=== PATIENT | female | born 1990 | race Caucasian/White ===

== ENCOUNTER 2017-12-03 19:56 | Inpatient (IN) | payer OTHER ==
[~2017-12-03 19:56] MED LIST: BUPIVACAINE (PF) 0.25% 30 ML VIAL ONE; SODIUM CHLORIDE 0.9% 100 ML BAG ONE; fentaNYL (PF) 50 MCG/ML 5 ML AMP ONE
[2017-12-03] MEDS ORDERED: CARBOPROST TROMETHAMINE 250 MCG/ML 1 ML AMP IM PRN (20:14)
[2017-12-03] MEDS ORDERED: TERBUTALINE 1 MG/ML VIAL SQ PRN (20:14)
[2017-12-03] MEDS ORDERED: LIDOCAINE 1% (PF) 10 MG/ML (30 ML SDV) SQ PRN (20:14)
[2017-12-03] MEDS ORDERED: OXYTOCIN 10 UNIT/ML 1 ML VIAL IM PRN (20:14)
[2017-12-03] MEDS ORDERED: METHYLERGONOVINE 0.2 MG/ML 1 ML AMP IM PRN (20:14)
[2017-12-03] MEDS ORDERED: OXYTOCIN 20 UNITS/1000 ML NS 1,000 ML IV SCH (20:15)
[2017-12-03 20:22] LABS: Glucose,Whole Blood 90 mg/dL (75-99)
[2017-12-03] MEDS: LACTATED RINGERS 1,000 ML IV SCH ×2 (20:40→21:49)
[2017-12-03 20:51] VITALS: BMI 35.8
[2017-12-03 20:57] LABS: Basophils % (A) 0 %; Eosinophils # (A) 0.1 k/uL (0-0.7); Eosinophils % (A) 1 %; HCT 34.5 % (34.0-46.0); HGB 11.7 gm/dL (11.4-16.0); Lymphocytes % (A) 12 %; MCH 29.8 pg (25.0-35.0); MCV 87.5 fL (80.0-100.0); Mean Platelet Volume 7.4; Monocytes # (A) 0.8 k/uL (0-1.0); Monocytes % (A) 5 %; Neutrophils % (A) 81 %; Platelet Count 307 k/uL (150-450); RBC 3.95 m/uL (3.80-5.40); RDW 13.1 % (11.5-15.5); WBC 16.2 k/uL (3.8-10.6)
[2017-12-03 21:01] LABS: Appearance,Urine Clear (Clear); Bilirubin,Urine Negative (Negative); Blood,Urine Negative (Negative); Color,Urine Yellow; Glucose,Urine (UA) Negative (Negative); Ketones,Urine 1+ (Negative); Leukocyte Esterase,Urine Small (Negative); Mucus,Urine Rare /hpf; Nitrite,Urine Negative (Negative); Protein,Urine Trace (Negative); RBC,Urine 2 /hpf (0-5); Specific Gravity,Urine 1.021 (1.001-1.035); Squamous Epithelial Cell,Urine 4 /hpf (0-4); Urobilinogen,Urine <2.0 mg/dL (<2.0); WBC,Urine 9 /hpf (0-5)
[2017-12-03 21:10] LABS: ALT 27 U/L (9-52); AST 21 U/L (14-36); Blood Urea Nitrogen 11 mg/dL (7-17); LDH 442 U/L (313-618)
--- NOTE | 2017-12-03 21:15 | P.MSEPDOC ---
Presenting Problems - Arrival Data Date of Arrival on Unit: 12/03/17 Time of Arrival on Unit: 19:56 Mode of Transport: Ambulatory - Complaint OB-Reason for Admission/Chief Complaint: Possible Onset of Labor Medical History - Information : 3 Para: 2 Term: 1 : 0 Abortions: Spontaneous or Elective: 1 Number of Living Children: 1 - Gestational Age Gestational Age by VANDANA (wks/days): 38 Weeks and 2 Days Review of Systems - Review of Systems Constitutional: No problems Breast: No problems ENT: No problems Cardiovascular: No problems Respiratory: No problems Gastrointestinal: No problems Genitourinary: No problems Musculoskeletal: No problems Neurological: No problems Skin: No problems Vital Signs - Temperature Temperature: 98.2 F Temperature Source: Temporal Artery Scan - Pulse Right Brachial Pulse Rate: 114 Pulse Assessment Method: Automatic Cuff - Respirations Respiratory Rate: 16 Oxygen Delivery Method: Room Air O2 Sat by Pulse Oximetry: 98 - Blood Pressure Right Arm Blood Pressure: 142/90 Blood Pressure Mean: 107 Blood Pressure Source: Automatic Cuff Medical Screen Scoring (Pre) - Cervical Exam Dilation: 4-7 cm = 2 Membranes: Intact - Uterine Contractions Frequency: < 36 weeks = 6 Duration: N/A Intensity: N/A - Maternal Vital Signs Maternal Temperature: N/A Maternal Blood Pressure: N/A Signs of Preeclampsia: N/A Maternal Respirations: N/A - Pain Assessment Pain Location and Character: Abdomen Pain Scale Used: Numeric (1 - 10) Pain Intensity: 10 Pain Management Goal: 5 Pain Description: Cramping Pain Frequency: Intermittent Pain Duration: 2 Pain Duration Units: Minutes Pain Behavior: Facial Grimacing, Vocalization Pain Aggravating Factors: Contractions - Maternal Trauma Maternal Trauma: N/A - Assessment Baseline FHR: 135 Heart Rate - NICHD Category: Category I (Normal) = 0 NST: Reactive Position: N/A Station: N/A - Total Score Total Score (Pre): 8 - Level of Risk Level of Risk: Medium (6-9) Physician Notification (Pre) - Physician Notified Physician Notified Date: 12/03/17 Physician Notified Time: 20:06 Physician/Practitioner Notifed:: Dr. Resendez Spoke With: Dr. Resendez New Order Received: Yes - Notification Comment Comment: Dr. Resendez called and given report on pt in triage. Vital signs, vag exam of. 4/100/-2. GDM- diet controlled. Orders recieved to admit pt to floor. Collect blood. sugar and pih labs. Pt may have epidural for pain. Disposition - Disposition OB Disposition: Admit I agree with the RN Medical Screening Exam: Yes Risk & Benefit of care provided described in d/c instruction: Yes Diagnosis: ENCOUNTER FOR FULL-TERM UNCOMPLICATED DELIVERY
[2017-12-03 21:24] LABS: INR 0.9 (<1.2); Prothrombin Time 9.3 sec (9.0-12.0)
[2017-12-03 21:40] LABS: Partial Thromboplastin Time 22.5 sec (22.0-30.0)
[2017-12-03] MEDS ORDERED: ROPIVACAINE 100 MG, fentaNYL (PF) 200 MCG in SODIUM CHLORIDE 0.9% 76 ML EPIDURAL ONE (21:43)
--- NOTE | 2017-12-03 23:01 | P.HPOB ---
History of Present Illness H&P Date: 12/03/17 Chief Complaint: Labor 27 year old presents at 38 weeks 2 days in labor. Her cervix was 4/90/-2 and she was katya every 2-4 minutes. heart tones 140-145 with moderate variability and reactive. Review of Systems All systems: negative Constitutional: Denies chills, Denies fever Eyes: denies blurred vision, denies pain Ears, nose, mouth and throat: Denies headache, Denies sore throat Cardiovascular: Denies chest pain, Denies shortness of breath Respiratory: Denies cough Gastrointestinal: Denies abdominal pain, Denies diarrhea, Denies nausea, Denies vomiting Genitourinary: Denies dysuria, Denies hematuria Musculoskeletal: Denies myalgias Integumentary: Denies pruritus, Denies rash Neurological: Denies numbness, Denies weakness Psychiatric: Denies anxiety, Denies depression Endocrine: Denies fatigue, Denies weight change Past Medical History Past Medical History: No Reported History Additional Past Medical History / Comment(s): OB history: first was a termination. Second was a vaginal delivery. This is her third and she had care in [facility] with Dr Rubio. She has gestational diabetes, diet controlled. Rub Imm, RPR NR, Hep B neg, HIV NR, GBS neg. History of Any Multi-Drug Resistant Organisms: None Reported Past Surgical History: No Surgical Hx Reported Past Anesthesia/Blood Transfusion Reactions: No Reported Reaction Past Psychological History: No Psychological Hx Reported Smoking Status: Former smoker Past Alcohol Use History: None Reported Past Drug Use History: None Reported - Past Family History Father Family Medical History: No Reported History Medications and Allergies Home Medications Medication Instructions Recorded Confirmed Type Pnv No.95/Ferrous Fum/Folic AC PO DAILY 12/03/17 History [ Multivitamin Tablet] Allergies Allergy/AdvReac Type Severity Reaction Status Date / Time No Known Allergies Allergy Verified 12/03/17 20:10 Exam Osteopathic Statement: *. No significant issues noted on an osteopathic structural exam other than those noted in the History and Physical/Consult. - Vital Signs Vital signs: Vital Signs Temp Pulse Resp BP Pulse Ox 12/03/17 21:15 98.2 F 114 H 16 142/90 98 12/03/17 20:34 98.2 F 114 H 16 142/90 98 12/03/17 20:06 98.2 F 114 H 16 142/90 98 Intake and Output 12/03/17 12/03/17 12/03/17 06:59 14:59 22:59 Intake Total 1000 Balance 1000 Intake: IV 1000 Lactated Ringers 1,000 ml 1000 @ 125 mls/hr IV .Q8H STEVE Rx#:[id number] Other: Weight 88.904 kg Heart: RRR Lungs: CTAB Abdomen: soft, nontender Extremeties: neg elmer's Results Result Diagrams: 12/03/17 20:40 12/03/17 20:40 Abnormal Lab Results - Last 24 Hours (Table) 12/03/17 12/03/17 12/03/17 Range/Units 20:40 20:40 20:40 WBC (3.8-10.6) k/uL Neutrophils # (1.3-7.7) k/uL Fibrinogen 614 H (200-500) mg/dL Creatinine 0.50 L (0.52-1.04) mg/dL Uric Acid 3.0 L (3.7-7.4) mg/dL Urine Protein Trace H (Negative) Urine Ketones 1+ H (Negative) Ur Leukocyte Esterase Small H (Negative) Urine WBC 9 H (0-5) /hpf Urine Mucus Rare H (None) /hpf 12/03/17 Range/Units 20:40 WBC 16.2 H (3.8-10.6) k/uL Neutrophils # 13.0 H (1.3-7.7) k/uL Fibrinogen (200-500) mg/dL Creatinine (0.52-1.04) mg/dL Uric Acid (3.7-7.4) mg/dL Urine Protein (Negative) Urine Ketones (Negative) Ur Leukocyte Esterase (Negative) Urine WBC (0-5) /hpf Urine Mucus (None) /hpf Assessment and Plan (1) Normal labor Current Visit: Yes Status: Acute Code(s): O80 - ENCOUNTER FOR FULL-TERM UNCOMPLICATED DELIVERY; Z37.9 - OUTCOME OF DELIVERY, UNSPECIFIED SNOMED Code(s ): 84583526 (2) Gestational diabetes mellitus, class A1 Current Visit: Yes Status: Acute Code(s): O24.410 - GESTATIONAL DIABETES MELLITUS IN , DIET CONTROLLED SNOMED Code(s): 44853993 Plan: 1. admit to family 2. expectant management 3. anticipate normal vaginal delivery
[2017-12-04] MEDS ORDERED: diphenhydrAMINE 25 MG CAP PO PRN (00:36)
[2017-12-04] MEDS ORDERED: diphenhydrAMINE 50 MG CAP PO PRN (00:36)
[2017-12-04] MEDS ORDERED: LANOLIN CREAM 5 GM TUBE TOPICAL PRN (00:36)
[2017-12-04] MEDS ORDERED: HYDROcodone/APAP 5-325MG 1 EACH TAB PO PRN (00:36)
[2017-12-04] MEDS ORDERED: IBUPROFEN 600 MG TAB PO PRN (00:36)
[2017-12-04] MEDS ORDERED: WITCH HAZEL 1 EACH MED..PAD TOPICAL PRN (00:36)
[2017-12-04] MEDS ORDERED: BENZOCAINE/MENTHOL SPRAY 1 GM/SPRAY AEROSOL TOPICAL PRN (00:36)
[2017-12-04] MEDS ORDERED: ZOLPIDEM 5 MG TAB PO PRN (00:36)
[2017-12-04] MEDS ORDERED: HYDROCORTISONE 2.5% RECTAL CREAM 30 GM TUBE RECTAL PRN (00:36)
[2017-12-04] MEDS ORDERED: SIMETHICONE 80 MG CHEWABLE PO PRN (00:36)
[2017-12-04] MEDS ORDERED: diphenhydrAMINE 50 MG/ML 1 ML VIAL IVP PRN ×2 (00:36)
--- NOTE | 2017-12-04 00:42 | P.PROBDLV ---
Vaginal Delivery Note - . Vaginal Delivery Note: 27-year-old presented at 38 weeks and 2 days in active labor. Her cervix was 4 cm dilated, 90% effaced, and -2 station. She was katya every 2-4 minutes. heart tones 140-145 with moderate variability and reactive. Blood sugar upon arrival was 90. Her blood pressure was a little elevated at 140/90. Preeclamptic labs were run and normal. She did get an epidural for pain control. Once this was placed she was 7 cm dilated, her percent effaced, and 0 station, amniotomy was performed at 2144 and clear fluid noted. Her cervix was completely dilated at 2345, she pushed the head to the perineum and after several pushes became increasingly fatigued. The perineum was localized with 1% lidocaine and a small midline episiotomy was made. The patient delivered a viable male over midline episiotomy under epidural anesthesia at 0018. Head delivered OA, anterior shoulder delivered gentle downward traction followed by posterior shoulder and rest of body. Nose and mouth bulb suctioned, cord clamped and cut, placed on mother's abdomen. Apgars 9, 9, weight 7 lbs. 14 oz. Placenta delivered spontaneously, intact with three-vessel cord at 0020. Vagina, cervix, and perineum were inspected. Second-degree midline episiotomy was repaired with 2-0 and 3-0 Vicryl. Estimated blood loss 200 mL. Mother and baby in stable condition.
[2017-12-04] MEDS ORDERED: OXYTOCIN 20 UNITS/1000 ML NS 1,000 ML IV SCH (00:45)
[2017-12-04] MEDS: SENNOSIDES-DOCUSATE SODIUM 1 EACH TAB PO SCH ×2 (07:39→20:12)
[2017-12-04] MEDS: ACETAMINOPHEN TAB 325 MG TAB PO PRN ×2 (07:40→20:12)
--- NOTE | 2017-12-04 11:51 | P.DS ---
Providers Date of admission: 12/03/17 20:19 Expected date of discharge: 12/05/17 Attending physician: Juliana Resendez Primary care physician: Stated None - Discharge Diagnosis(es) (1) Normal labor Current Visit: Yes Status: Resolved (2) Gestational diabetes mellitus, class A1 Current Visit: Yes Status: Resolved (3) Normal vaginal delivery Current Visit: Yes Status: Acute Hospital Course: Patient presented in active labor. She underwent normal vaginal delivery. Her course was uncomplicated. She'll be discharged home day # 1 in stable condition to follow-up with me in 6 weeks. Plan - Discharge Summary New Discharge Prescriptions: New Ibuprofen [Motrin] 600 mg PO Q6HR PRN #30 tab PRN Reason: Mild Pain Or Fever >= 100.5 No Action Pnv No.95/Ferrous Fum/Folic AC [ Multivitamin Tablet] PO DAILY Discharge Medication List Pnv No.95/Ferrous Fum/Folic AC [ Multivitamin Tablet] PO DAILY 12/03/17 [History] Ibuprofen [Motrin] 600 mg PO Q6HR PRN #30 tab 12/04/17 [Rx] Follow up Appointment(s)/Referral(s): Juliana Resendez DO [Doctor of Osteopathic Medicine] - 6 Weeks Discharge Disposition: HOME SELF-CARE
[2017-12-05 00:04] VITALS: BP 135/86; PULSE 80; RESP 16; TEMP 97.7
== END 2017-12-05 01:11 | disposition home or self-care (01) | DRG 775 ==
LOC: FBPOP 19:56 → 4FBP 20:19
PROVIDERS: ADMIT Obstetrics & Gynecology; ATTEND Obstetrics & Gynecology
PROC: 0W8NXZZ Division of Female Perineum, External Approach (ICD-10-PCS; principal; 2017-12-03)
PROC: 10E0XZZ Delivery of Products of Conception, External Approach (ICD-10-PCS; 2017-12-03)
PROC: 10907ZC Drainage of Amniotic Fluid, Therapeutic from Products of Conception, Via Natural or Artificial Opening (ICD-10-PCS; 2017-12-03)
DX: O24.420 Gestational diabetes mellitus in childbirth, diet controlled (principal); Z37.0 Single live birth; Z3A.38 38 weeks gestation of pregnancy; Z87.891 Personal history of nicotine dependence
CPT/HCPCS: 59025; 81001; 82565; 83615; 84450; 84460; 84520; 84550; 85025; 85384; 85610; 85730; 99213

== ENCOUNTER 2018-11-06 06:00 | Inpatient (IN) | payer OTHER ==
[2018-11-06] MEDS ORDERED: METHYLERGONOVINE 0.2 MG/ML 1 ML AMP IM PRN (15:43)
[2018-11-06] MEDS ORDERED: CARBOPROST TROMETHAMINE 250 MCG/ML 1 ML AMP IM PRN (15:43)
[2018-11-06] MEDS ORDERED: TERBUTALINE 1 MG/ML VIAL SQ PRN (15:43)
[2018-11-06] MEDS ORDERED: OXYTOCIN 10 UNIT/ML 1 ML VIAL IM PRN (15:43)
[2018-11-06] MEDS ORDERED: LIDOCAINE 0.5% (PF) 5 MG/ML (50 ML SDV) SQ PRN (15:43)
[2018-11-06] MEDS ORDERED: AMPICILLIN 2,000 MG in SODIUM CHLORIDE 0.9% 100 ML IVPB STA (15:43)
[2018-11-06] MEDS ORDERED: OXYTOCIN 30 UNITS/500 ML NS 30 UNIT in SALINE 1 500ML.BAG IV SCH (15:45)
[2018-11-06] MEDS ORDERED: LACTATED RINGERS 1,000 ML IV SCH (15:45)
[2018-11-06 15:59] VITALS: BMI 36.9
[2018-11-06 16:16] LABS: Basophils % (A) 0 %; Eosinophils # (A) 0.1 k/uL (0-0.7); Eosinophils % (A) 1 %; HCT 33.1 % (34.0-46.0); HGB 10.7 gm/dL (11.4-16.0); Hypochromasia Slight; Lymphocytes # (A) 1.7 k/uL (1.0-4.8); Lymphocytes % (A) 17 %; MCH 26.7 pg (25.0-35.0); MCHC 32.2 g/dL (31.0-37.0); MCV 83.1 fL (80.0-100.0); Mean Platelet Volume 7.5; Monocytes # (A) 0.5 k/uL (0-1.0); Monocytes % (A) 6 %; Neutrophils # (A) 7.1 k/uL (1.3-7.7); Neutrophils % (A) 74 %; Platelet Count 305 k/uL (150-450); Poikilocytosis Slight; RBC 3.98 m/uL (3.80-5.40); RDW 13.4 % (11.5-15.5); WBC 9.7 k/uL (3.8-10.6)
[2018-11-06 16:44] LABS: Glucose,Whole Blood 80 mg/dL (75-99)
--- NOTE | 2018-11-06 16:50 | P.HPOB ---
History of Present Illness H&P Date: 11/06/18 Chief Complaint: IUP @ 38 3/7 weeks, prolonged ROM This is a 27-year-old 4 para 2011 at 38-3/7 weeks with an estimated due date of 11/17/18. Patient presented to the office this morning stating she felt like her water had broken sometimes Sunday. She states when she rolled around in bed she would have increased leaking throughout the day as well. Patient presented to the office nitrazine was positive with positive ferning on slide examination. Patient was checked and noted to be 470/-2. Patient appears received care with myself since 11 weeks. She is a smoker and cessation was encouraged. On blood work she had a blood type of O+, rubella was noted to be immediate immune, RPR nonreactive, hepatitis B surface antigen negative, HIV neg ative she did fail her 1 hour Glucola and elected to go through diabetes education and started checking her's sugars as she has been gestational diabetic in her prior pregnancies. In addition her group beta strep was negative on 10/16/18. Review of Systems Constitutional: Denies chills, Denies fatigue, Denies fever Ears, nose, mouth and throat: Denies headache Cardiovascular: Reports leg edema Respiratory: Denies dyspnea Gastrointestinal: Reports diarrhea, Denies nausea, Denies vomiting Genitourinary: Reports Past Medical History Past Medical History: No Reported History Additional Past Medical History / Comment(s): OB history: first was a termination. Second was a vaginal delivery. This is her third and she had care in [facility] with Dr Rubio. She has gestational diabetes, diet controlled. Rub Imm, RPR NR, Hep B neg, HIV NR, GBS neg. History of Any Multi-Drug Resistant Organisms: None Reported Past Surgical History: No Surgical Hx Reported Past Anesthesia/Blood Transfusion Reactions: No Reported Reaction Past Psychological History: No Psychological Hx Reported Smoking Status: Current every day smoker Past Alcohol Use History: None Reported Past Drug Use History: None Reported - Past Family History Father Family Medical History: No Reported History Mother Family Medical History: No Reported History Medications and Allergies Home Medications Medication Instructions Recorded Confirmed Type Pnv No.95/Ferrous Fum/Folic AC 1 tab PO DAILY 12/03/17 05/27/18 History [ Multivitamin Tablet] Allergies Allergy/AdvReac Type Severity Reaction Status Date / Time No Known Allergies Allergy Verified 11/06/18 15:42 Exam Osteopathic Statement: *. No significant issues noted on an osteopathic st ructural exam other than those noted in the History and Physical/Consult. Vital Signs Temp Pulse Resp BP Pulse Ox 11/06/18 15:23 98.2 F 100 18 135/85 98 Intake and Output 11/06/18 11/06/18 11/06/18 06:59 14:59 22:59 Other: Weight 91.626 kg Targeted physical exam is performed on this date in general this a well- nourished well-developed female in no acute distress abdomen is noted to be gravid and appropriate for gestational age, heart tones are noted to be category 1 she is katya regularly every 2 minutes and Pitocin was started secondary to prolonged rupture of membranes. Results Result Diagrams: 11/06/18 15:53 Abnormal Lab Results - Last 24 Hours (Table) 11/06/18 Range/Units 15:53 Hgb 10.7 L (11.4-16.0) gm/dL Hct 33.1 L (34.0-46.0) % Assessment and Plan (1) Term Current Visit: Yes Status: Acute Code(s): Z34.90 - ENCNTR FOR SUPRVSN OF NORMAL , UNSP, UNSP TRIMESTER SNOMED Code(s): 38024997 (2) Prolonged rupture of membranes Current Visit: Yes Status: Acute Code(s): O42.90 - JIMMY ROM, 7TH0 BETW RUPT & ONST LABR, UNSP WEEKS OF GEST SNOMED Code(s): 939480066 (3) Gestational diabetes mellitus, class A1 Current Visit: No Status: Resolved Code(s): O24.410 - GESTATIONAL DIABETES MELLITUS IN , DIET CONTROLLED SNOMED Code(s): 60424842 Plan: Patient is admitted to labor and delivery antibiotics are started for prolonged rupture of membranes, Pitocin is started in addition secondary to this as well. Anticipate spontaneous vaginal delivery this evening.
[2018-11-06] MEDS ORDERED: ROPIVACAINE 5MG/ML 20ML VIAL ONE (17:25)
[2018-11-06] MEDS ORDERED: SODIUM CHLORIDE 0.9% 100 ML BAG ONE (17:25)
[2018-11-06] MEDS ORDERED: fentaNYL (PF) 50 MCG/ML 5 ML AMP ONE (17:25)
[2018-11-06] MEDS ORDERED: LANOLIN CREAM 5 GM TUBE TOPICAL PRN (18:14)
[2018-11-06] MEDS ORDERED: diphenhydrAMINE 25 MG CAP PO PRN (18:14)
[2018-11-06] MEDS ORDERED: SIMETHICONE 80 MG CHEWABLE PO PRN (18:14)
[2018-11-06] MEDS ORDERED: ACETAMINOPHEN TAB 325 MG TAB PO PRN (18:14)
[2018-11-06] MEDS ORDERED: diphenhydrAMINE 50 MG/ML 1 ML VIAL IVP PRN ×2 (18:14)
[2018-11-06] MEDS ORDERED: ZOLPIDEM 5 MG TAB PO PRN (18:14)
[2018-11-06] MEDS ORDERED: HYDROCORTISONE 2.5% RECTAL CREAM 30 GM TUBE RECTAL PRN (18:14)
[2018-11-06] MEDS ORDERED: diphenhydrAMINE 50 MG CAP PO PRN (18:14)
[2018-11-06] MEDS ORDERED: BENZOCAINE/MENTHOL SPRAY 1 GM/SPRAY AEROSOL TOPICAL PRN (18:14)
[2018-11-06] MEDS ORDERED: WITCH HAZEL 1 EACH MED..PAD TOPICAL PRN (18:14)
[2018-11-06] MEDS ORDERED: OXYTOCIN 20 UNITS/1000 ML NS 1,000 ML IV SCH (18:15)
--- NOTE | 2018-11-06 18:19 | P.PROBDLV ---
Vaginal Delivery Note - . Vaginal Delivery Note: This is a pleasant 27-year-old 4 para 2011 at 38-3/7 weeks that presents to labor and delivery from the office after prolonged rupture of membranes was diagnosed. Patient states that she started leaking fluid on Sunday but did not come into labor and delivery because she had an appointment today in the office. Patient was noted to be grossly ruptured in the office with nitrazine testing along with ferning. Patient was admitted to labor and delivery Pitocin augmentation of labor was begun along with IV antibiotics. Patient progressed to 7 requested epidural which was placed without difficulty by the anesthesia department. Patient progressed quickly to complete was placed in a modified Jayden position with good maternal effort the head was delivered without difficulty followed by the anterior/posterior shoulder infant was then placed on the maternal abdomen. The umbilical cord was then doubly clamped and cut and the placenta was delivered spontaneously intact with a three-vessel cord being noted. On inspection the patient's vaginal vault of note a midline episiotomy was preformed secondary to patient request/scar tissue impeding the delivery of the infant. Lidocaine was injected into the laceration site and this was repaired in usual fashion with 3-0 Rapide. Hemostasis was appreciated. The uterus was noted to be firm and below the umbilicus at this time. Estimated blood loss for this delivery 200 mL. On further dissection the patient's vaginal hemostasis was appreciated and no further lacerations were noted a rectal exam was performed and noted to be intact with no defects being noted. Next para patient and infant tolerated delivery well and are resting comfortably.
[2018-11-07] MEDS: SENNOSIDES-DOCUSATE SODIUM 1 EACH TAB PO SCH ×4 (00:38→20:12)
[2018-11-07 02:19] LABS: Hemoglobin A1C 5.6 % (4.0-6.0)
[2018-11-07] MEDS: IBUPROFEN 600 MG TAB PO PRN ×2 (04:09→17:25)
[2018-11-07 07:22] LABS: Basophils % (A) 0 %; Eosinophils # (A) 0.2 k/uL (0-0.7); Eosinophils % (A) 2 %; HCT 30.7 % (34.0-46.0); HGB 9.9 gm/dL (11.4-16.0); Lymphocytes # (A) 2.3 k/uL (1.0-4.8); Lymphocytes % (A) 21 %; MCH 26.8 pg (25.0-35.0); MCHC 32.2 g/dL (31.0-37.0); MCV 83.2 fL (80.0-100.0); Mean Platelet Volume 6.9; Monocytes # (A) 0.8 k/uL (0-1.0); Monocytes % (A) 7 %; Neutrophils # (A) 7.5 k/uL (1.3-7.7); Neutrophils % (A) 69 %; Platelet Count 307 k/uL (150-450); RBC 3.69 m/uL (3.80-5.40); RDW 13.5 % (11.5-15.5)
[2018-11-07] MEDS: PRENATAL VIT-IRON-FOLIC ACID 1 EACH CAP PO SCH (10:40)
--- NOTE | 2018-11-07 12:32 | P.DS ---
Providers Date of admission: 11/06/18 15:22 Expected date of discharge: 11/07/18 Attending physician: Tonia Main Primary care physician: Stated None - Discharge Diagnosis(es) (1) Term Current Visit: Yes Status: Acute (2) Prolonged rupture of membranes Current Visit: Yes Status: Acute (3) Gestational diabetes mellitus, class A1 Current Visit: No Status: Resolved Hospital Course: This pleasant 27-year-old 4 para 2011 presented to labor and delivery after being seen in the office. Patient states she thinks her water may have broken on Sunday as she noted leaking. She was seen in the office. NST was noted to be reactive, she was being followed for gestational diabetes and has been quite noncompliant. Hemoglobin A1c was done proximal weight 2 weeks ago noted to be 5.6. Patient had an ultrasound done in the office in addition showing very minimal fluid no appreciable pockets to be able to measure. Nitrazine and ferning were noted to be positive on exam. Patient was admitted to labor and delivery Pitocin augmentation of labor was begun along with IV antibiotics. Patient became uncomfortable and requesting an epidural and was noted to be 6-7 cm dilated. Patient progressed quickly to complete after the epidural was placed by anesthesia began pushing and had a normal spontaneous vaginal delivery of a viable male infant at 1800, weight of 7 pounds 11.8 ounces with Apgars of 9 and 9 at one and 5 minutes respectively. Patient's course has been uneventful. On this day #1 she is ambulating and voiding without difficulty. She is tolerating regular diet without nausea or vomiting. She is aware that the may have to stay 48 hours as she had prolonged rupture of membranes. She states understanding. Patient Condition at Discharge: Good Plan - Discharge Summary New Discharge Prescriptions: No Action Pnv No.95/Ferrous Fum/Folic AC [ Multivitamin Tablet] 1 tab PO DAILY Discharge Medication List Pnv No.95/Ferrous Fum/Folic AC [ Multivitamin Tablet] 1 tab PO DAILY 12/03/17 [History] Follow up Appointment(s)/Referral(s): Tonia Main DO [Doctor of Osteopathic Medicine] - 4 Weeks Patient Instructions/Handouts: Vaginal Delivery (DC), Vaginal Delivery (GEN) Discharge Disposition: HOME SELF-CARE
[2018-11-08 00:34] VITALS: RESP 16
[2018-11-08] MEDS: IBUPROFEN 600 MG TAB PO PRN ×2 (06:00→16:05)
[2018-11-08] MEDS: SENNOSIDES-DOCUSATE SODIUM 1 EACH TAB PO SCH (09:57)
[2018-11-08] MEDS: PRENATAL VIT-IRON-FOLIC ACID 1 EACH CAP PO SCH (10:09)
[2018-11-08 16:20] VITALS: PULSE 81; TEMP 98.4
[2018-11-08 16:21] VITALS: BP 132/76
== END 2018-11-08 18:36 | disposition home or self-care (01) | DRG 807 ==
LOC: 4FBP 15:22
PROVIDERS: ADMIT Obstetrics & Gynecology Obstetrics; ATTEND Obstetrics & Gynecology Obstetrics
PROC: 00HU33Z Insertion of Infusion Device into Spinal Canal, Percutaneous Approach (ICD-10-PCS; principal; 2018-11-06)
PROC: 3E0R3NZ Introduction of Analgesics, Hypnotics, Sedatives into Spinal Canal, Percutaneous Approach (ICD-10-PCS; principal; 2018-11-06)
PROC: 3E033VJ Introduction of Other Hormone into Peripheral Vein, Percutaneous Approach (ICD-10-PCS; principal; 2018-11-06)
PROC: 0W8NXZZ Division of Female Perineum, External Approach (ICD-10-PCS; principal; 2018-11-06)
PROC: 10E0XZZ Delivery of Products of Conception, External Approach (ICD-10-PCS; principal; 2018-11-06)
DX: O42.92 Full-term premature rupture of membranes, unspecified as to length of time between rupture and onset of labor (principal); Z37.0 Single live birth; F17.200 Nicotine dependence, unspecified, uncomplicated; O99.334 Smoking (tobacco) complicating childbirth; Z71.6 Tobacco abuse counseling; O24.420 Gestational diabetes mellitus in childbirth, diet controlled; Z3A.38 38 weeks gestation of pregnancy; Z91.19 Patient's noncompliance with other medical treatment and regimen
CPT/HCPCS: 83036; 85025; 86850; 86900; 86901; 88307

== ENCOUNTER 2024-05-19 06:02 | Inpatient (IN) | payer OTHER ==
[2024-05-19] MEDS ORDERED: CARBOPROST TROMETHAMINE 250 MCG/ML 1 ML AMP IM PRN (06:26)
[2024-05-19] MEDS ORDERED: miSOPROStoL 200 MCG TAB PO PRN (06:26)
[2024-05-19] MEDS ORDERED: TERBUTALINE 1 MG/ML VIAL SQ PRN (06:26)
[2024-05-19] MEDS ORDERED: METHYLERGONOVINE 0.2 MG/ML 1 ML AMP IM PRN (06:26)
[2024-05-19] MEDS ORDERED: miSOPROStoL 200 MCG TAB RECTAL PRN (06:26)
[2024-05-19] MEDS ORDERED: OXYTOCIN 10 UNIT/ML 1 ML VIAL IM PRN (06:26)
[2024-05-19] MEDS ORDERED: TRANEXAMIC 1,000 MG/100ML-NACL 1,000 MG in EMPTY BAG 1 BAG IV PRN (06:26)
[2024-05-19] MEDS: LACTATED RINGERS 1,000 ML IV SCH (06:40)
[2024-05-19] MEDS: OXYTOCIN 30 UNITS/500 ML NS 30 UNIT in SALINE 1 500ML.BAG IV SCH (06:43)
[2024-05-19 06:48] LABS: Basophils % (A) 0 %; Eosinophils # (A) 0.2 k/uL (0-0.7); Eosinophils % (A) 2 %; HCT 33.4 % (34.0-46.0); HGB 11.4 gm/dL (11.4-16.0); Lymphocytes # (A) 1.6 k/uL (1.0-4.8); Lymphocytes % (A) 21 %; MCHC 34.3 g/dL (31.0-37.0); MCV 87.6 fL (80.0-100.0); Mean Platelet Volume 8.1; Monocytes # (A) 0.5 k/uL (0-1.0); Monocytes % (A) 7 %; Neutrophils # (A) 5.3 k/uL (1.3-7.7); Neutrophils % (A) 69 %; Platelet Count 288 k/uL (150-450); RBC 3.81 m/uL (3.80-5.40); RDW 12.2 % (11.5-15.5); WBC 7.7 k/uL (3.8-10.6)
[2024-05-19 07:33] LABS: Glucose,Whole Blood 83 mg/dL (70-110)
[2024-05-19] MEDS ORDERED: fentaNYL (PF) 50 MCG/ML 5 ML AMP ONE (09:30)
[2024-05-19] MEDS ORDERED: SODIUM CHLORIDE 0.9% 250 ML BAG ONE (09:30)
[2024-05-19] MEDS ORDERED: ROPIVACAINE 5 MG/ML 30 ML VIAL ONE (09:30)
[2024-05-19] MEDS ORDERED: ZOLPIDEM 5 MG TAB PO PRN (10:30)
[2024-05-19] MEDS ORDERED: HYDROCORTISONE 2.5% RECTAL CREAM 30 GM TUBE RECTAL PRN (10:30)
[2024-05-19] MEDS ORDERED: LANOLIN CREAM 1 GM TUBE TOPICAL PRN (10:30)
[2024-05-19] MEDS ORDERED: SIMETHICONE 80 MG CHEWABLE PO PRN (10:30)
[2024-05-19] MEDS ORDERED: diphenhydrAMINE 50 MG CAP PO PRN (10:30)
[2024-05-19] MEDS ORDERED: diphenhydrAMINE 25 MG CAP PO PRN (10:30)
[2024-05-19] MEDS ORDERED: diphenhydrAMINE 50 MG/ML 1 ML VIAL IVP PRN ×2 (10:30)
[2024-05-19] MEDS: LIDOCAINE 0.5% (PF) 5 MG/ML (50 ML SDV) SQ PRN (10:34)
--- NOTE | 2024-05-19 10:35 | P.PROBDLV ---
Vaginal Delivery Note - . Vaginal Delivery Note: 33-year-old 5 para 3-0-1-3 that presented to labor and delivery at 38- 3/7 weeks for induction of labor secondary to advanced cervical dilation, poorly controlled gestational diabetes. Patient was admitted to labor and delivery and amniotomy is performed. Patient was noted to be 5+ centimeters upon admission to labor. Patient did request epidural. Epidural was placed without difficulty by the anesthesia department. Patient progressed to complete began pushing and had a normal spontaneous vaginal delivery of a viable male , weight of 8 pounds 1 ounce. After a 2-minute delay the umbilical cord was doubly clamped and cut, infant was handed to the maternal abdomen. Infant was assessed by a waiting RN. Placenta was delivered spontaneously intact with three-vessel cord being noted. Inspection the patient's vaginal vault a first-degree midline laceration was appreciated and repaired in the usual fashion with 3-0 Rapide. Hemostasis was noted after repair. Uterus was noted to be firm below the umbilicus. A red rubber catheter was used to drain the bladder of approximately 100 cc of clear yellow urine. All counts were noted be correct x 2 at the end of the delivery. Patient and tolerated delivery well and are resting comfortably.
[2024-05-19] MEDS: ACETAMINOPHEN TAB 500 MG TAB PO SCH (13:34)
[2024-05-19] MEDS: IBUPROFEN 800 MG TAB PO SCH (18:15)
--- NOTE | 2024-05-19 18:57 | P.HPOB ---
History of Present Illness H&P Date: 05/19/24 Chief Complaint: IUP at 38-3/7 weeks, uncontrolled GDM A1, advanced cervical dilation This is a 33-year-old -0-1-3 at 38-3/7 weeks that presents to labor and delivery for induction of labor secondary to uncontrolled gestational diabetes, LGA. Estimated due date of 06/01. Patient has been receiving routine care which has been complicated by diagnosis of gestational diabetes. Patient has had poorly controlled blood sugars despite treatment with metformin. Patient admitted she discontinued metformin secondary to GI upset. Patient notes good movement denies vaginal bleeding or loss of fluid. On blood work this patient is a blood type of O+, rubella status immune, hepatitis B surface antigen negative, HIV negative, RPR nonreactive, grew beta strep cultures negative. Review of Systems Constitutional: Denies chills, Denies fatigue, Denies fever Ears, nose, mouth and throat: Denies headache Cardiovascular: Reports leg edema Respiratory: Denies dyspnea Gastrointestinal: Denies nausea, Denies vomiting Genitourinary: Reports Past Medical History Past Medical History: No Reported History Additional Past Medical History / Comment(s): OB history: first was a termination. Second was a vaginal delivery. This is her third and she had care in [facility] with Dr Rubio. She has gestational diabetes, diet controlled. Rub Imm, RPR NR, Hep B neg, HIV NR, GBS neg. History of Any Multi-Drug Resistant Organisms: None Reported Past Surgical History: No Surgical Hx Reported Past Anesthesia/Blood Transfusion Reactions: No Reported Reaction Past Psychological History: No Psychological Hx Reported Smoking Status: Never smoker Past Alcohol Use History: None Reported Past Drug Use History: None Reported - Past Family History Father Family Medical History: No Reported History Mother Family Medical History: No Reported History Medications and Allergies Home Medications Medication Instructions Recorded Confirmed Type Pnv No.95/Ferrous Fum/Folic AC 1 tab PO DAILY 12/03/17 05/19/24 History [ Multivitamin Tablet] Allergies Allergy/AdvReac Type Severity Reaction Status Date / Time No Known Allergies Allergy Verified 11/06/18 15:42 Exam Osteopathic Statement: *. No significant issues noted on an osteopathic structural exam other than those noted in the History and Physical/Consult. Vital Signs Temp Pulse Resp BP Pulse Ox 05/19/24 06:23 98.7 F 91 16 126/82 97 Intake and Output 05/18/24 05/19/24 05/19/24 22:59 06:59 14:59 Other: Weight 92.986 kg Targeted physical exam is performed this date General This is a well-nourished well-developed female in no acute distress, breathing is nonlabored, heart has a regular rate and rhythm, abdomen is gravid, on cervical exam she is 5/50/-2 station amniotomy is performed and copious clear fluid is obtained. heart tones are noted to be category 1 and she is katya every 2 minutes Results Result Diagrams: 05/19/24 06:40 Abnormal Lab Results - Last 24 Hours (Table) 05/19/24 Range/Units 06:40 Hct 33.4 L (34.0-46.0) % Assessment and Plan (1) Term Narrative/Plan: Advanced cervical dilation, 5+ centimeters Current Visit: No Status: Acute Code(s): Z34.90 - ENCNTR FOR SUPRVSN OF NORMAL , UNSP, UNSP TRIMESTER SNOMED Code(s): 45427340 (2) Gestational diabetes mellitus, class A1 Narrative/Plan: Poorly controlled Current Visit: No Status: Resolved Code(s): O24.410 - GESTATIONAL DIABETES MELLITUS IN , DIET CONTROLLED SNOMED Code(s): 52748727 Plan: 33-year-old 5 para 3-0-1-3 at 30-3/7 weeks that presents for induction of labor secondary to uncontrolled gestational diabetes, advanced cervical dilation. Patient is admitted to labor and delivery and Pitocin induction of labor has begun. Amniotomy is performed and clear fluid is obtained. Patient is counseled on options for analgesia. She states she will consider. Anticipate spontaneous vaginal delivery. Patient does have a history of shoulder still sore with her last , risk of shoulder dystocia given uncontrolled diabetes and LGA ultrasound. Patient states understanding.
[2024-05-19] MEDS: SENNOSIDES-DOCUSATE SODIUM 1 EACH TAB PO SCH (20:40)
[2024-05-20 05:56] LABS: Basophils % (A) 0 %; Eosinophils # (A) 0.1 k/uL (0-0.7); Eosinophils % (A) 1 %; HCT 32.3 % (34.0-46.0); HGB 10.7 gm/dL (11.4-16.0); Lymphocytes # (A) 2.3 k/uL (1.0-4.8); Lymphocytes % (A) 22 %; MCH 29.1 pg (25.0-35.0); MCHC 33.2 g/dL (31.0-37.0); MCV 87.7 fL (80.0-100.0); Mean Platelet Volume 8.6; Monocytes # (A) 0.7 k/uL (0-1.0); Monocytes % (A) 6 %; Neutrophils # (A) 7.3 k/uL (1.3-7.7); Neutrophils % (A) 68 %; Platelet Count 252 k/uL (150-450); RBC 3.68 m/uL (3.80-5.40); RDW 12.6 % (11.5-15.5); WBC 10.8 k/uL (3.8-10.6)
--- NOTE | 2024-05-20 08:51 | P.DS ---
Providers Date of admission: 05/19/24 06:02 Expected date of discharge: 05/20/24 Attending physician: Tonia Main Primary care physician: Stated None - Discharge Diagnosis(es) (1) Term Current Visit: No Status: Acute (2) Gestational diabetes mellitus, class A1 Current Visit: No Status: Resolved (3) Status post vaginal delivery Current Visit: Yes Status: Acute (4) Obstetrical laceration, first degree Current Visit: Yes Status: Acute Hospital Course: 33-year-old 5 now para 4-0-1-4 that presented to labor and delivery at 38-3/7 weeks for induction of labor secondary to advanced cervical dilation and poorly controlled gestational diabetes. Patient has been receiving routine care with poorly controlled gestational diabetes, patient was begun on metformin in an attempt to control blood sugars but she discontinued secondary to GI upset. Patient was admitted to labor and delivery amniotomy was performed patient was noted to be 5+ centimeters upon admission. Patient did request epidural soon after amniotomy was performed. Clear fluid was noted on amniotomy. Patient did receive an epidural for analgesia. Patient progressed quickly to complete began pushing and had a normal spontaneous vaginal delivery of a viable male infant weight of 8 2. Patient did sustain a first-degree midline laceration. This was repaired in usual fashion with 3-0 Rapide. Patient is doing well . She is ambulating and voiding without difficulty. She is tolerating a regular diet without nausea or vomiting. States her lochia to be minimal to moderate. She is breast-feeding without difficulty. She would like discharge home at 24 hours. Patient Condition at Discharge: Good Plan - Discharge Summary New Discharge Prescriptions: No Action Pnv No.95/Ferrous Fum/Folic AC [ Multivitamin Tablet] 1 tab PO DAILY Discharge Medication List Pnv No.95/Ferrous Fum/Folic AC [ Multivitamin Tablet] 1 tab PO DAILY 12/03/17 [History] Follow up Appointment(s)/Referral(s): Tonia Main DO [Doctor of Osteopathic Medicine] - 06/30/24 9:45 am Patient Instructions/Handouts: Vaginal Delivery (DC), Vaginal Delivery (GEN) Activity/Diet/Wound Care/Special Instructions: No tub baths or intercourse until 6 weeks . Olog-jlo-kyvqypx ibuprofen 600 mg or 3 tablets every 6 hours as needed for pain. Patient is to return to the office at 6 weeks for routine post check. Should she have any concerns prior to his appointment she is urged to call the office. Discharge Disposition: HOME SELF-CARE
[2024-05-20 09:33] VITALS: BP 146/88; PULSE 83; RESP 15; TEMP 98.4
[2024-05-20] MEDS: PRENATAL VIT-IRON-FOLIC ACID 1 EACH TABLET PO SCH (11:04)
== END 2024-05-20 12:00 | disposition home or self-care (01) | DRG 560 ==
LOC: 4FBP 06:02
PROVIDERS: ADMIT Obstetrics & Gynecology Obstetrics; ATTEND Obstetrics & Gynecology Obstetrics
PROC: 10E0XZZ Delivery of Products of Conception, External Approach (ICD-10-PCS; principal; 2024-05-19)
PROC: 3E033VJ Introduction of Other Hormone into Peripheral Vein, Percutaneous Approach (ICD-10-PCS; 2024-05-19)
PROC: 0HQ9XZZ Repair Perineum Skin, External Approach (ICD-10-PCS; 2024-05-19)
PROC: 10907ZC Drainage of Amniotic Fluid, Therapeutic from Products of Conception, Via Natural or Artificial Opening (ICD-10-PCS; 2024-05-19)
DX: O24.420 Gestational diabetes mellitus in childbirth, diet controlled (principal); Z37.0 Single live birth; O36.63X0 Maternal care for excessive fetal growth, third trimester, not applicable or unspecified; Z3A.38 38 weeks gestation of pregnancy; O70.0 First degree perineal laceration during delivery
CPT/HCPCS: 85025; 86850; 86900; 86901